=== PATIENT | female | born 1995 | race American Indian/Alaskan Native ===

== ENCOUNTER 2021-09-21 01:19 | Emergency (ER) | payer OTHER ==
[2021-09-21 01:57] VITALS: BP 133/72
[2021-09-21] MEDS ORDERED: FAMOTIDINE 20 MG TAB PO ONE (02:18)
[2021-09-21] MEDS ORDERED: dexAMETHasone 4 MG/ML VIAL IM ONE (02:18)
[2021-09-21] MEDS ORDERED: diphenhydrAMINE 50 MG/ML VIAL IM ONE (02:18)
--- NOTE | 2021-09-21 03:08 | Emergency Department Report ---
ED Allergic Reaction HPI - General Chief complaint: Allergic Reaction Stated complaint: ALLERGIC RX Time Seen by Provider: 09/21/21 02:11 Source: patient Mode of arrival: Ambulatory Limitations: No Limitations - History of Present Illness Initial Comments: 36-year-old female [facility] emerge department complaining of allergic reaction of unknown etiology but reports pruritus to her lips with some for the swelling and tingling to the tongue she did take some Benadryl her symptoms began to resolve but she presents emerge department seeking further evaluation and treatment options with no stridor, no wheeze MD Complaint: allergic reaction -: Gradual Symptoms: denies: lip swelling, orolingual swelling, dizziness, nausea, vomiting, other Severity: mild Treatment Prior to Arrival: benadryl Previous Allergy History: none - Related Data Previous Rx's Medication Instructions Recorded Last Taken Type Famotidine [Pepcid] 40 mg PO DAILY #14 tablet 09/21/21 Unknown Rx hydrOXYzine HCL [Atarax] 25 mg PO Q6HR PRN #20 tablet 09/21/21 Unknown Rx predniSONE [Deltasone] 20 mg PO QDAY #5 tab 09/21/21 Unknown Rx Allergies Allergy/AdvReac Type Severity Reaction Status Date / Time No Known Allergies Allergy Verified 09/21/21 02:23 ED Review of Systems ROS: Stated complaint: ALLERGIC RX Other details as noted in HPI Comment: All other systems reviewed and negative ED Past Medical Hx - Past Medical History Previous Medical History?: No - Surgical History Past Surgical History?: No - Medications Home Medications: Home Medications Medication Instructions Recorded Confirmed Last Taken Type Famotidine [Pepcid] 40 mg PO DAILY #14 tablet 09/21/21 Unknown Rx hydrOXYzine HCL [Atarax] 25 mg PO Q6HR PRN #20 tablet 09/21/21 Unknown Rx predniSONE [Deltasone] 20 mg PO QDAY #5 tab 09/21/21 Unknown Rx ED Physical Exam - General Limitations: No Limitations General appearance: alert, in no apparent distress - Head Head exam: Present: atraumatic, normocephalic - Eye Eye exam: Present: normal appearance, PERRL Pupils: Present: normal accommodation - ENT ENT exam: Present: normal exam, normal orophraynx, mucous membranes moist, TM's normal bilaterally - Neck Neck exam: Present: normal inspection, full ROM - Respiratory Respiratory exam: Present: normal lung sounds bilaterally. Absent: respiratory distress - Cardiovascular Cardiovascular Exam: Present: regular rate, normal rhythm. Absent: systolic murmur, diastolic murmur, rubs, gallop - GI/Abdominal GI/Abdominal exam: Present: soft, normal bowel sounds - Extremities Exam Extremities exam: Present: normal inspection - Back Exam Back exam: Present: normal inspection - Neurological Exam Neurological exam: Present: alert, oriented X3, CN II-XII intact - Psychiatric Psychiatric exam: Present: normal affect, normal mood - Skin Skin exam: Present: warm, dry, intact, normal color. Absent: rash ED Course Vital Signs 09/21/21 01:54 Temperature 98.0 F Pulse Rate 94 H Respiratory 16 Rate Blood Pressure 133/72 [Right] O2 Sat by Pulse 98 Oximetry ED Medical Decision Making - Medical Decision Making This patient presents with symptoms consistent with acute hypersensitivity reaction, likely acute allergic reaction. Presentation not consistent with acute anaphylaxis (lack of pulmonary, dermatologic, cardiovascular or GI symptoms, lack of hypotension or exposure to known allergen), angioedema, serum sickness(no recent drug exposure, lack of fevers, arthralgias), ingestion of preformed toxin. No evidence of airway compromise or shock at this time. Plan to treat for allergic reaction with H2/H1 blockers, steroids. No indication for epinephrine at this time. Plan Critical care attestation.: If time is entered above; I have spent that time in minutes in the direct care of this critically ill patient, excluding procedure time. ED Disposition Clinical Impression: Allergic reaction Disposition: 01 HOME / SELF CARE / HOMELESS Is pt being admited?: No Does the pt Need Aspirin: No Condition: Stable Instructions: Allergies, Adult, [id number], How to Use an Auto-Injector Pen, Allergies, Adult Additional Instructions: You have been evaluated in the emergency department today for allergic reaction. Been given medication to control your symptoms. You have been observed for several hours emerge department and you are stable for discharge at this time. You can take Benadryl and Pepcid which are available [id number] to help control your symptoms at home. You have also been given a prescription for medications to help with your symptoms in the form of steroids and and 8/ histamine blockers. Please schedule appointment with your primary care physician for follow-up. Return to emergency department if you experience rashes, difficulty breathing or swallowing, lip mouth or tongue swelling, vomiting or for any other concerning symptoms Prescriptions: hydrOXYzine HCL [Atarax] 25 mg PO Q6HR PRN #20 tablet PRN Reason: Itching predniSONE [Deltasone] 20 mg PO QDAY #5 tab Famotidine [Pepcid] 40 mg PO DAILY #14 tablet Referrals: LOW ROWAN MD [Staff Physician] - 3-5 Days
== END 2021-09-21 03:00 | disposition home or self-care (01) ==
LOC: ED 01:19
DX: T78.40XA Allergy, unspecified, initial encounter (principal); X58.XXXA Exposure to other specified factors, initial encounter
CPT/HCPCS: 96372; 99282; J1100; J1200